=== PATIENT | female | born 1965 | race Two or more races ===

== ENCOUNTER 2018-12-17 09:45 | Outpatient (CLI) | payer OTHER | END 2018-12-17 10:01 | disposition home or self-care (01) | LOC: RAD 09:45 | DX: M54.6 Pain in thoracic spine (principal); M54.5 Low back pain; M25.561 Pain in right knee ==

== ENCOUNTER 2023-01-08 15:30 | Outpatient (CLI) | payer OTHER | END 2023-01-08 15:41 | disposition home or self-care (01) | LOC: RAD 15:30 | PROVIDERS: ATTEND Orthopaedic Surgery | DX: M25.532 Pain in left wrist (principal); M25.522 Pain in left elbow ==

== ENCOUNTER 2024-04-10 09:13 | Outpatient (CLI) | payer OTHER | END 2024-04-10 09:24 | disposition home or self-care (01) | LOC: RAD 09:13 | PROVIDERS: ATTEND Orthopaedic Surgery | DX: S80.02XA Contusion of left knee, initial encounter (principal) ==

== ENCOUNTER → 2024-04-11 | Outpatient (CLI) | payer OTHER | END | disposition home or self-care (01) | LOC: MRI 07:57 | PROVIDERS: ATTEND Orthopaedic Surgery | DX: M25.062 Hemarthrosis, left knee (principal) | CPT/HCPCS: 73718 ==